=== PATIENT | male | born 1975 | race Caucasian/White ===

== ENCOUNTER 2019-01-27 14:08 | Emergency (ER) | payer OTHER, SELFPAY ==
[2019-01-27 14:09] VITALS: BP 154/83; PULSE 96; RESP 17; TEMP 37.4; O2SAT 97; BMI 26.4
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
[2019-01-27 15:31] VITALS: BP 140/97; PULSE 87; RESP 18; O2SAT 99
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
[2019-01-27] MEDS: Ibuprofen 600 MG Tablet PO (15:58)
== END 2019-01-27 16:19 | disposition home or self-care (01) ==
LOC: ED 16:17
PROVIDERS: Emergency Provider Emergency Medicine; Family Provider Internal Medicine; PCP Internal Medicine
DX: M25.561 Pain in right knee (principal); V89.2XXA Person injured in unspecified motor-vehicle accident, traffic, initial encounter; Y93.9 Activity, unspecified; Y92.9 Unspecified place or not applicable; Y99.9 Unspecified external cause status
CPT/HCPCS: 73564; 99283

== ENCOUNTER 2019-07-24 18:30 | Outpatient (RCR) | payer OTHER, SELFPAY ==
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
--- NOTE | 2019-07-24 18:33 | HP.PTDCSUM ---
HP - PT D/C Summary It has been my pleasure to treat XU WOOD Jr. under orders from John Kamara DO, for the diagnosis of R knee pain tibial plateaux fracture. for a total of 5 visit(s). Discharge Date: 07/24/19 Please see the following information for a summary of their discharge status. - Subjective Subjective: No problems or pain. Gets quick pain badly at times such as walking on real uneven surface or pivotting but it is always transient. Mostly has jogged at soccer practice adn kicked and run without issues. - Pain R ant knee Pain Intensity (Out of 10): 0 - Overall Improvement % Improvement: 98 - Objective Objective/Function: Full 0-140 aROM B knees without pain. No tenderness at patella or joint line. 5/5 strength knee flexion adn ext. steps two at a time without pain. No compensation or asymmetries with jogging adn no pain. - Goals Goal 1:: full aROM in prone without pain. Goal Progress: Goal Met Goal 2:: Exit chair without noticing knee Goal Progress: Goal Met Goal 3:: Hike with daughter adn start to jog 5 minutes without increased pain. Goal Progress: Goal Met Goal 4:: Patient feel 95% back to normal Goal Progress: Goal Met - Plan Plan: d/c - D/C Information Discharge Comments: Doing well and released from PT. If there are questions or concerns regarding this patient's physical therapy, please feel free to call me at [phone]. Thank you for the referral of this patient. Sincerely, John Bettencourt, DPT, OCS, CSCS
== END 2019-07-24 19:00 | disposition home or self-care (01) ==
LOC: PT 18:30
PROVIDERS: Family Provider Internal Medicine; PCP Internal Medicine; Referring Provider Family Medicine; Visit Provider Family Medicine
DX: S82.141D Displaced bicondylar fracture of right tibia, subsequent encounter for closed fracture with routine healing (principal)
CPT/HCPCS: 97110; 97161; 97530